=== PATIENT | male | born 1970 | race Caucasian/White ===

== ENCOUNTER 2020-05-23 11:33 | Emergency (ER) | payer MEDICAID ==
--- NOTE | 2020-05-23 12:11 | CR ---
PROCEDURE INFORMATION: Exam: XR Left Hand Exam date and time: 05/23/2020 11:41 AM Age: 50 years old Clinical indication: Injury or trauma; Injury history: Smashed left fingers 3-5; Initial encounter; Abrasion; Left middle finger and left ring finger and left little finger; Injury date: 05/23/2020 TECHNIQUE: Imaging protocol: XR Left hand. Views: 3 or more views. COMPARISON: No relevant prior studies available. FINDINGS: Bones/joints: Normal. Soft tissues: Normal. IMPRESSION: No acute findings.
--- NOTE | 2020-05-23 12:15 | EDM.PDOC ---
Scribed by Beckie Wilson 05/23/20 1214 for Rose Martinez MD ED HPI GENERAL MEDICAL PROBLEM - General Chief Complaint: Upper Extremity Injury/Pain Stated Complaint: SMASHED LEFT HAND 3 FINGERS Time Seen by Provider: 05/23/20 11:40 Source of Information: Reports: Patient, RN, RN Notes Reviewed History Limitations: Reports: No Limitations - History of Present Illness INITIAL COMMENTS - FREE TEXT/NARRATIVE: Patient presents to ED by POV. He got his hand smashed on a car trunk and a garage door. Onset: Today Duration: Constant Location: Reports: Upper Extremity, Left Quality: Reports: Ache Severity: Mild Improves with: Reports: None Worsens with: Reports: None Associated Symptoms: Reports: No Other Symptoms Left Hand Pain Score (Numeric/FACES): 7 Past Medical History - Past Health History Medical/Surgical History: Denies Medical/Surgical History Social & Family History - Family History Family Medical History: Noncontributory - Living Situation & Occupation Living situation: Reports: with Family Review of Systems - Review of Systems Review Of Systems: Comprehensive ROS is negative, except as noted in HPI. ED EXAM, GENERAL - Physical Exam Exam: See Below Exam Limited By: No Limitations General Appearance: Alert, WD/WN, No Apparent Distress, Thin Respiratory/Chest: No Respiratory Distress Cardiovascular: Normal Peripheral Pulses Extremities: Normal Capillary Refill, Other (left fingers 3-5 tender to palpation, slight soft tissue swelling. Superficial abrasion. No deformity. No visible bruising. ). No: Joint Swelling Neurological: Alert, Oriented, No Motor/Sensory Deficits Psychiatric: Normal Mood ED TRAUMA EXTREMITY PROCEDURES - Splinting Left 4th Digit Splint Site: Left 4th finger Pre-Procedure NV Status: Normal Post-Procedure NV Status: Normal Splint Material: Aluminum-Foam Splint Design: Sugar Tong Applied & Form Fitted By: Nurse Provider Post-Splint Application NV Check: NV Status Normal, Good Position Complications: No Course - Vital Signs Last Recorded V/S: Last Vital Signs Temp 98.7 F 05/23/20 11:39 Pulse 91 05/23/20 11:39 Resp 16 05/23/20 11:39 BP 104/79 05/23/20 11:39 Pulse Ox 100 05/23/20 11:39 - Orders/Labs/Meds Orders: Active Orders 24 hr Category Date Time Status Hand Comp Min 3V Lt [CR] Urgent Exams 05/23/20 11:39 Taken - Radiology Interpretation Free Text/Narrative:: [facility] [place] [facility] Final Radiology Report Call: [phone] assistance Online chat: [email or web address] Name: SHANI ARMANDO Age: 50Years M Date: 05/23/2020 SSN: -- : 1970 Study: CR HAND COMP MIN 3V LT Requesting Physician: ROSE MARTINEZ Images: 3 Addl Studies: Provided Clinical History: Smashed left fingers 3-5 Contrast: Contrast Medium: Contrast Amount: Contrast Method: CONFIDENTIALITY STATEMENT This report is intended only for use by the referring physician, and only in accordance with law. If you received this in error, call [phone]. Page 1 of 1 PROCEDURE INFORMATION: Exam: XR Left Hand Exam date and time: 05/23/2020 11:41 AM Age: 50 years old Clinical indication: Injury or trauma; Injury history: Smashed left fingers 3-5; Initial encounter; Abrasion; Left middle finger and left ring finger and left little finger; Injury date: 05/23/2020 TECHNIQUE: Imaging protocol: XR Left hand. Views: 3 or more views. COMPARISON: No relevant prior studies available. FINDINGS: Bones/joints: Normal. Soft tissues: Normal. IMPRESSION: No acute findings. Thank you for allowing us to participate in the care of your patient. Dictated and Authenticated by: Sloan Montgomery MD 05/23/2020 12:11 PM Central Time ([place] & [place]) Departure - Departure Time of Disposition: 12:07 Disposition: Home, Self-Care 01 Condition: Good Clinical Impression: Crushing injury of finger of left hand - Discharge Information *PRESCRIPTION DRUG MONITORING PROGRAM REVIEWED*: Not Applicable *COPY OF PRESCRIPTION DRUG MONITORING REPORT IN PATIENT TIAN: Not Applicable Instructions: Crush Injury of the Hand, Nmpx-ey-Aral Forms: ED Department Discharge Additional Instructions: Rest, ice pack, and elevate left hand to reduce pain and swelling. Ibuprofen as needed for pain. Follow directions on package/label for dosing and precautions. Wear finger splint as needed for comfort. Sepsis Event Note (ED) - Focused Exam Vital Signs: Vital Signs Temp Pulse Resp BP Pulse Ox 05/23/20 11:39 98.7 F 91 16 104/79 100 - My Orders Last 24 Hours: My Active Orders 05/23/20 11:39 Hand Comp Min 3V Lt [CR] Urgent - Assessment/Plan Last 24 Hours: My Active Orders 05/23/20 11:39 Hand Comp Min 3V Lt [CR] Urgent I have read and agree with the documentation that has been completed regarding this visit. By signing this record, I attest that the documentation was completed in my physical presence and is an accurate record of the encounter.
== END 2020-05-23 12:20 | disposition home or self-care (01) ==
LOC: DL.ED 11:33
DX: S67.195A Crushing injury of left ring finger, initial encounter (principal); W23.0XXA Caught, crushed, jammed, or pinched between moving objects, initial encounter
CPT/HCPCS: 73130-LT; 99283-25

== ENCOUNTER 2021-05-20 01:14 | Emergency (ER) | payer MEDICAID ==
[2021-05-20 02:11] LABS: ANION GAP 13.5 mEq/L (7-13); CHLORIDE,CL 104 mmol/L (98-107); SODIUM,NA 142 mmol/L (136-145)
--- NOTE | 2021-05-20 02:33 | EDM.PDOC ---
ED HPI GENERAL MEDICAL PROBLEM - General Chief Complaint: General Stated Complaint: DIZZY SPELLS, LIGHT HEADED Time Seen by Provider: 05/20/21 01:25 Source of Information: Reports: Patient History Limitations: Reports: No Limitations - History of Present Illness INITIAL COMMENTS - FREE TEXT/NARRATIVE: ED with c/o of feeling lightheaded and dizzy intermittently past 3 days. No p rior episodes. Sx worse if lying down and rolling over. ED after standing at catwalk tonight at work and felt dizzy. No recnt congestion. Has not been out in heat. No report of nausea or vomiting with Dizzy spells. No chest pain. - Related Data Allergies Allergy/AdvReac Type Severity Reaction Status Date / Time No Known Allergies Allergy Verified 05/20/21 01:22 Home Meds: Home Meds . [No Known Home Meds] 05/23/20 [History] Past Medical History - Past Health History Medical/Surgical History: Denies Medical/Surgical History HEENT History: Reports: Impaired Vision Other HEENT History: wears glasses Cardiovascular History: Reports: None Respiratory History: Reports: None Gastrointestinal History: Reports: None Genitourinary History: Reports: None Musculoskeletal History: Reports: Fracture Neurological History: Reports: None Psychiatric History: Reports: None Endocrine/Metabolic History: Reports: None Hematologic History: Reports: None Immunologic History: Reports: None Oncologic (Cancer) History: Reports: None Dermatologic History: Reports: None - Infectious Disease History Infectious Disease History: Reports: Chicken Pox, Measles - Past Surgical History Head Surgeries/Procedures: Reports: None Other HEENT Surgeries/Procedures: jaw surgery Social & Family History - Family History Family Medical History: No Pertinent Family History - Tobacco Use Tobacco Use Status *Q: Current Every Day Tobacco User Years of Tobacco use: 30 Packs/Tins Daily: 0.9 Second Hand Smoke Exposure: Yes - Caffeine Use Caffeine Use: Reports: Coffee, Soda - Recreational Drug Use Recreational Drug Use: No - Living Situation & Occupation Living situation: Reports: with Family ED ROS GENERAL - Review of Systems Review Of Systems: See Below Constitutional: Reports: No Symptoms HEENT: Reports: Glasses Respiratory: Reports: No Symptoms Cardiovascular: Reports: Lightheadedness Endocrine: Reports: No Symptoms GI/Abdominal: Reports: No Symptoms : Reports: No Symptoms Musculoskeletal: Reports: No Symptoms Neurological: Reports: Dizziness (greater with movement, rolling over in bed or walking catwalk at work) Psychiatric: Reports: No Symptoms ED EXAM, GENERAL - Physical Exam Exam: See Below Exam Limited By: No Limitations General Appearance: Alert, No Apparent Distress Eye Exam: Bilateral Eye: EOMI, PERRL Ears: Normal External Exam, Normal Canal, Hearing Grossly Normal Nose: Normal Inspection Throat/Mouth: Normal Inspection Head: Atraumatic, Normocephalic Neck: Normal Inspection Respiratory/Chest: No Respiratory Distress, Lungs Clear, Normal Breath Sounds Cardiovascular: Normal Peripheral Pulses, Regular Rate, Rhythm GI/Abdominal: Normal Bowel Sounds, Soft Back Exam: Normal Inspection, Full Range of Motion Extremities: Normal Inspection Neurological: Alert, Oriented, Normal Cognition Skin Exam: Warm, Dry, Intact, Normal Color #1 Interpretation EKG Date: 05/20/21 Time: 01:29 Rhythm: NSR Rate (Beats/Min): 78 [place]: Normal P-Wave: Present QRS: Normal ST-T: Normal QT: Normal Comparison: NA - No Prior EKG Course - Vital Signs Last Recorded V/S: Last Vital Signs Temp 98.6 F 05/20/21 01:19 Pulse 91 05/20/21 01:19 Resp 18 05/20/21 01:19 BP 123/82 05/20/21 01:19 Pulse Ox 98 05/20/21 01:19 Orthostatic Blood Pressure [ 103/81 Standing] Orthostatic Blood Pressure [ 106/75 Sitting] Orthostatic Blood Pressure [ 100/70 Supine] - Orders/Labs/Meds Orders: Active Orders 24 hr Category Date Time Status EKG Documentation Completion [RC] URGENT Care 05/20/21 01:21 Active Orthostatic Vital Signs [RC] ASDIRECTED Care 05/20/21 01:42 Active Labs: Laboratory Tests 05/20/21 05/20/21 05/20/21 Range/Units 01:37 01:37 01:37 WBC 7.0 (5.0-10.0) 10^3/uL RBC 4.57 L (4.6-6.2) 10^6/uL Hgb 14.7 (14.0-18.0) g/dL Hct 42.5 (40.0-54.0) % MCV 93.0 (80-100) fL MCH 32.2 (27.0-34.0) pg MCHC 34.6 (33.0-35.0) g/dL Plt Count 243 (150-450) 10^3/uL Neut % (Auto) 50.1 (42.2-75.2) % Lymph % (Auto) 37.4 (20.5-50.1) % [place] % (Auto) 7.1 (2-8) % Eos % (Auto) 5.0 H (1.0-3.0) % Baso % (Auto) 0.4 (0.0-1.0) % D-Dimer, Quantitative < 100 (0-400) ng/mL Sodium 142 (136-145) mmol/L Potassium 3.5 (3.5-5.1) mmol/L Chloride 104 (98-107) mmol/L Carbon Dioxide 28 (21-32) mmol/L Anion Gap 13.5 H (7-13) mEq/L BUN 10 (7-18) mg/dL Creatinine 1.05 (0.70-1.30) mg/dL Est Cr Clr Drug Dosing 85.17 mL/min Estimated GFR (MDRD) > 60 BUN/Creatinine Ratio 9.5 (No establ ref range) Glucose 110 H (70-99) mg/dL Calcium 8.3 L (8.5-10.1) mg/dL Magnesium 1.9 (1.8-2.4) mg/dL Total Bilirubin 0.2 (0.2-1.0) mg/dL AST 12 L (15-37) U/L ALT 20 (16-63) U/L Alkaline Phosphatase 100 (46-116) U/L Troponin I High Sens 25 (<=76) pg/mL Total Protein 6.8 (6.4-8.2) g/dL Albumin 3.7 (3.4-5.0) g/dL Globulin 3.1 Albumin/Globulin Ratio 1.2 Meds: Medications Discontinued Medications Generic Name Dose Route Start Last Admin Trade Name Freq PRN Reason Stop Dose Admin Meclizine HCl 25 mg 05/20/21 04:32 Meclizine 12.5 Mg Tab PO 05/20/21 04:33 ONETIME ONE Departure - Departure Time of Disposition: 04:33 Disposition: Home, Self-Care 01 Condition: Good Clinical Impression: Dizziness of unknown cause - Discharge Information *PRESCRIPTION DRUG MONITORING PROGRAM REVIEWED*: No *COPY OF PRESCRIPTION DRUG MONITORING REPORT IN PATIENT TIAN: No Instructions: Dizziness, Hako-ip-[id number] Forms: ED Department Discharge Additional Instructions: hydrate avaid heat exposure light activity change positions slowly clinic follow up urgent follow up weakness, difficultly with speech meclizine 25mg one every 8 hours as needed for dizziness Sepsis Event Note (ED) - Evaluation Sepsis Screening Result: No Definite Risk - Focused Exam Vital Signs: Vital Signs Temp Pulse Resp BP Pulse Ox 05/20/21 01:19 98.6 F 91 18 123/82 98 - My Orders Last 24 Hours: My Active Orders 05/20/21 01:21 EKG Documentation Completion [RC] URGENT 05/20/21 01:42 Orthostatic Vital Signs [RC] ASDIRECTED - Assessment/Plan Last 24 Hours: My Active Orders 05/20/21 01:21 EKG Documentation Completion [RC] URGENT 05/20/21 01:42 Orthostatic Vital Signs [RC] ASDIRECTED
--- NOTE | 2021-05-20 04:27 | CT ---
PROCEDURE INFORMATION: Exam: CT Head Without Contrast Exam date and time: 05/20/2021 2:56 AM Age: 51 years old Clinical indication: Dizziness; Additional info: Dizzy TECHNIQUE: Imaging protocol: Computed tomography of the head without contrast. Radiation optimization: All CT scans at this facility use at least one of these dose optimization techniques: automated exposure control; mA and/or kV adjustment per patient size (includes targeted exams where dose is matched to clinical indication); or iterative reconstruction. COMPARISON: No relevant prior studies available. FINDINGS: Brain: No acute infarct or hemorrhage. Cerebral ventricles: No ventriculomegaly. Paranasal sinuses: Paranasal sinuses are clear. No air-fluid level. Mastoid air cells: Visualized mastoid air cells are clear. Bones/joints: No calvarial or skull base fracture. Soft tissues: Unremarkable. IMPRESSION: 1. No acute infarct or hemorrhage. 2. No calvarial or skull base fracture.
[2021-05-20] MEDS ORDERED: Meclizine 12.5 MG Tab PO ONE (04:32)
== END 2021-05-20 04:47 | disposition home or self-care (01) ==
LOC: DL.ED 01:14
DX: R42 Dizziness and giddiness (principal); Z72.0 Tobacco use
CPT/HCPCS: 36415; 70450; 80053; 83735; 84484; 85025; 85379; 93005; 99284; A9270